=== PATIENT | female | born 1965 ===

== ENCOUNTER 2017-11-23 00:45 | Emergency (ER) | payer SELFPAY ==
[2017-11-23 01:00] VITALS: BMI 22.1
[2017-11-23 01:05] VITALS: TEMP 97.7
--- NOTE | 2017-11-23 02:22 | ED PDOC ---
Arrival/HPI - General Chief Complaint: Lower Extremity Problem/Injury Time Seen by Provider: 11/23/17 01:49 Historian: Patient, Family - History of Present Illness Narrative History of Present Illness (Text): 11/23/17 02:19 you were treated in the ED today for right knee pain for 3 months and you work on your feet and knees but no trauma/injury/calf pain or swelling/nausea/ vomiting/headache/dizziness/difficulty breathing/chest pain/abdomen pain/ numbness/tingling/pain with urination. Time/Duration: > month Symptom Onset: Gradual Symptom Course: Worsening Activities at Onset: Light Context: Home Past Medical History - Provider Review Nursing Documentation Reviewed: Yes - Travel History Have you recently traveled outside [place] w/in the past 3 mons?: No - Psychiatric Hx Substance Use: No Family/Social History - Physician Review Nursing Documentation Reviewed: Yes Family/Social History: No Known Family HX Smoking Status: no Hx Alcohol Use: No Hx Substance Use: No Allergies/Home Meds Allergies/Adverse Reactions: Allergies No Known Allergies Allergy (Verified 11/23/17 01:00) Review of Systems - Physician Review All systems were reviewed & negative as marked: Yes - Review of Systems Constitutional: Normal Eyes: Normal ENT: Normal Respiratory: Normal Cardiovascular: Normal Gastrointestinal: Normal Genitourinary Female: Normal Musculoskeletal: Normal, Joint Swelling, Other (right knee pain) Skin: Normal Neurological: Normal Endocrine: Normal Hemo/Lymphatic: Normal Psychiatric: Normal Physical Exam Vital Signs Reviewed: Yes Vital Signs Temp Pulse Resp BP Pulse Ox 11/23/17 02:45 97.7 F 76 16 108/69 100 11/23/17 01:00 97.7 F 52 L 18 108/96 H 99 Temperature: Afebrile Blood Pressure: Normal Pulse: Regular Respiratory Rate: Normal Appearance: Positive for: Well-Appearing, Non-Toxic, Uncomfortable Pain Distress: None Mental Status: Positive for: Alert and Oriented X 3 - Systems Exam Head: Present: Atraumatic, Normocephalic Pupils: Present: PERRL Extroacular Muscles: Present: EOMI Conjunctiva: Present: Normal Ears: Present: Normal Mouth: Present: Moist Mucous Membranes Pharnyx: Present: Normal Nose (External): Present: Atraumatic Nose (Internal): Present: Normal Inspection Neck: Present: Normal Range of Motion Respiratory/Chest: Present: Clear to Auscultation, Good Air Exchange Cardiovascular: Present: Regular Rate and Rhythm Abdomen: No: Tenderness, Distention, Normal Bowel Sounds, Peritoneal Signs, Rebound, Guarding, McBurney's Point Tender, Rovsing's Sign Present, Hernias, Feeding Tubes, Ostomy Tubes, Mass/Organomegaly, Scars, Other Back: Present: Normal Inspection Upper Extremity: Present: Normal Inspection Lower Extremity: Present: Other (right knee mild swelling wo thrill/erythema/ fluctuance, but medial discomfort. otherwise warm/sensation/cap refill/pink, dp pulse+ wo any laxity or other bony tenderness.) Neurological: Present: GCS=15, CN II-XII Intact, Speech Normal, Motor Func Grossly Intact Skin: Present: Warm, Normal Color Psychiatric: Present: Alert, Oriented x 3, Normal Insight, Normal Concentration Medical Decision Making ED Course and Treatment: 11/23/17 02:23 you were treated in the ED today for right knee pain for 3 months and you work on your feet and knees but no trauma/injury/calf pain or swelling/nausea/ vomiting/headache/dizziness/difficulty breathing/chest pain/abdomen pain/ numbness/tingling/pain with urination. You were otherwise breathing easily, smiling with your duaghter, good strength/sensation, difficulty bearing weight, clear lungs, no abdomen tenderness, right knee mild swelling without infection but medial tenderness and otherwise pink'/warm/good pulses and no other bony tenderness, no fever temp 97.7, stable heart rate 52, stable breathing rate , excellent oxygen level 99% room air, stable blood pressure 108/46 radiology right knee xray left knee initial no acute signs of fracture, motrin done in the ED with improvement, counselled to to non-weight bearing till fist clinic visit and thus discharged home. 1. Recommend right knee immobilizer and crutches as directed. 2. Recommend motrin as directed for pain control 3. Recommend follow-up primary care 2-3 days to review symptoms, get final xray and orthopedics referral. 4. If any worsening pain, fever, chills, nausea, vomiting, difficulty breathing, numbness, loss of limb function, pain with urination or any medical condition then return to the ED. 11/23/17 03:01 - RAD Interpretation Narrative RAD Interpretations (Text): 11/23/17 03:01 right knee xray no acute. Radiology Orders: 11/23/17 01:49 KNEE RIGHT 2 VIEWS (AP & LAT) [RAD] Stat Supervisor Of Communications: ED Physician - Medication Orders Current Medication Orders: Discontinued Medications Ibuprofen (Motrin Tab) 800 mg PO STAT STA Stop: 11/23/17 01:51 Last Admin: 11/23/17 01:57 Dose: 800 mg [facility] Pain/Vitals Document 11/23/17 01:57 AB (Rec: 11/23/17 01:58 AB [id number]) Pain Reassessment Is This A Pain ReAssessment? Yes Pain Scale Used Pain Scale Used Numeric Location Left, Right or Bilateral Right Upper or Lower Upper Pain Location Body Site Knee Description Intermittent Intensity 3 Scale Used Numeric Pain Behavior Grasping Site Aggravating Factors Changing Position Alleviating Factors Medication Re-Assess: [facility] Pain/Vitals Document 11/23/17 02:52 AB (Rec: 11/23/17 02:52 AB [id number]) Pain Reassessment Is This A Pain ReAssessment? Yes Sleep Is patient sleeping during reassessment? No Presence of Pain Presence of Pain No Disposition/Present on Arrival - Present on Arrival Any Indicators Present on Arrival: No History of DVT/PE: No History of Uncontrolled Diabetes: No Urinary Catheter: No History of Decub. Ulcer: No History Surgical Site Infection Following: None - Disposition Have Diagnosis and Disposition been Completed?: Yes Diagnosis: Knee pain, right Disposition: HOME/ ROUTINE Disposition Time: 03:02 Patient Plan: Discharge Condition: IMPROVED Print Language: ARABIC Additional Instructions: you were treated in the ED today for right knee pain for 3 months and you work on your feet and knees but no trauma/injury/calf pain or swelling/nausea/ vomiting/headache/dizziness/difficulty breathing/chest pain/abdomen pain/ numbness/tingling/pain with urination. You were otherwise breathing easily, smiling with your duaghter, good strength/sensation, difficulty bearing weight, clear lungs, no abdomen tenderness, right knee mild swelling without infection but medial tenderness and otherwise pink'/warm/good pulses and no other bony tenderness, no fever temp 97.7, stable heart rate 52, stable breathing rate , excellent oxygen level 99% room air, stable blood pressure 108/46 radiology right knee xray left knee initial no acute signs of fracture, motrin done in the ED with improvement, counselled to to non-weight bearing till fist clinic visit and thus discharged home. 1. Recommend right knee immobilizer and crutches as directed. 2. Recommend motrin as directed for pain control 3. Recommend follow-up primary care 2-3 days to review symptoms, get final xray and orthopedics referral. 4. If any worsening pain, fever, chills, nausea, vomiting, difficulty breathing, numbness, loss of limb function, pain with urination or any medical condition then return to the ED. Prescriptions: Ibuprofen [Motrin] 600 mg PO Q8 PRN 10 Days #30 tab PRN Reason: Pain, Mild (1-3) Referrals: PCP,NO [Primary Care Provider] - Follow up with primary Niru Wesley MD [Staff Provider] - Follow up with primary Forms: [employer] (Jamaican)
[2017-11-23 02:52] VITALS: BP 108/69; PULSE 76; RESP 16; O2SAT 100
--- NOTE | 2017-11-23 13:17 | RAD ---
PROCEDURE: Right Knee Radiographs. HISTORY: Right knee Pain. No history of recent/ related trauma provided COMPARISON: None. FINDINGS: BONES: Normal. No fracture. JOINTS: Normal. No osteoarthritis. JOINT EFFUSION: None. OTHER FINDINGS: None. IMPRESSION: Normal radiographs of the right knee.
== END 2017-11-23 03:31 | disposition home or self-care (01) ==
LOC: ED 00:45
DX: M25.561 Pain in right knee (principal)